=== PATIENT | male | born 1970 | race Caucasian/White ===

== ENCOUNTER 2018-08-16 05:29 | Emergency (ER) | payer MEDICAID ==
[~2018-08-16] VITALS: Ht 172.7 cm; Wt 75.0 kg
[2018-08-16 05:35] VITALS: Ht 172.7 cm; Wt 75.0 kg
[2018-08-16 06:26] VITALS: BP 132/84
== END 2018-08-16 06:16 | disposition home or self-care (01) ==
LOC: ED 05:29
DX: J20.8 Acute bronchitis due to other specified organisms (principal)
CPT/HCPCS: Q0092

== ENCOUNTER 2018-08-21 07:35 | Emergency (ER) | payer MEDICAID ==
[~2018-08-21] VITALS: Ht 172.7 cm; Wt 76.7 kg
[2018-08-21 07:38] VITALS: BP 146/98; Ht 172.7 cm; Wt 76.7 kg
== END 2018-08-21 08:08 | disposition home or self-care (01) ==
LOC: ED 07:35
DX: Z13.89 Encounter for screening for other disorder (principal)

== ENCOUNTER 2020-05-07 09:58 | Emergency (ER) | payer MEDICAID ==
[~2020-05-07] VITALS: Ht 172.7 cm; Wt 78.5 kg
[2020-05-07 10:02] VITALS: Ht 172.7 cm; Wt 78.5 kg
[2020-05-07 12:28] VITALS: BP 138/90
== END 2020-05-07 12:25 | disposition home or self-care (01) ==
LOC: ED 09:58
DX: S22.41XA Multiple fractures of ribs, right side, initial encounter for closed fracture (principal); S00.81XA Abrasion of other part of head, initial encounter; S50.811A Abrasion of right forearm, initial encounter; S50.311A Abrasion of right elbow, initial encounter; W18.39XA Other fall on same level, initial encounter; Y93.89 Activity, other specified; Y92.89 Other specified places as the place of occurrence of the external cause; Y99.8 Other external cause status
CPT/HCPCS: 90715

== ENCOUNTER 2020-05-19 08:46 | Emergency (ER) | payer MEDICAID ==
[2020-05-19 09:36] VITALS: BP 140/101
== END 2020-05-19 09:36 | disposition home or self-care (01) ==
LOC: ED 08:46
DX: S22.41XD Multiple fractures of ribs, right side, subsequent encounter for fracture with routine healing (principal); X58.XXXD Exposure to other specified factors, subsequent encounter